=== PATIENT | female | born 1995 | race Two or more races ===

== ENCOUNTER 2021-06-20 08:42 | Outpatient (CLI) | payer OTHER | END 2021-06-20 09:01 | disposition home or self-care (01) | LOC: TOM 08:42 | PROVIDERS: ATTEND Otolaryngology | DX: J32.3 Chronic sphenoidal sinusitis (principal); J01.90 Acute sinusitis, unspecified ==

== ENCOUNTER 2021-08-28 08:53 | Outpatient (CLI) | payer OTHER | END 2021-08-28 09:07 | disposition home or self-care (01) | LOC: SONOGRAMA 08:53 | PROVIDERS: ATTEND Internal Medicine | DX: R94.5 Abnormal results of liver function studies (principal); K76.0 Fatty (change of) liver, not elsewhere classified ==

== ENCOUNTER 2021-09-11 09:50 | Emergency (ER) | payer OTHER ==
[~2021-09-11] VITALS: Ht 170.2 cm; Wt 63.5 kg
[2021-09-11] MEDS ORDERED: AZELASTIN-FLUTI23 GM NS (10:01)
[2021-09-11] MEDS ORDERED: KETO10TA2 PO (11:56)
== END 2021-09-11 15:05 | disposition home or self-care (01) ==
LOC: ER 09:50
DX: H92.02 Otalgia, left ear (principal); Z20.822 Contact with and (suspected) exposure to COVID-19